=== PATIENT | male | born 1990 | race African-American/Black ===

== ENCOUNTER 2018-05-24 09:50 | Emergency (ER) | END 2018-05-24 15:15 | disposition home or self-care (01) ==

== ENCOUNTER 2018-06-18 19:51 | Emergency (ER) | END 2018-06-19 00:16 | disposition home or self-care (01) ==

== ENCOUNTER 2019-03-26 21:15 | Emergency (ER) | payer MEDICAID, OTHER ==
[~2019-03-26] VITALS: Ht 180.3 cm; Wt 68.2 kg
[~2019-03-26 21:15] MED LIST: HYDR-3980 PO; METO10TA92 PO; NPH,100I5 SQ; ONDA4TAB14 PO; POLY17PO6 PO
[2019-03-26 21:18] VITALS: Ht 180.3 cm; Wt 68.2 kg
[2019-03-26] MEDS ORDERED: SOD CHLORIDE 0.9% 1,000 ML IV STA (21:23)
[2019-03-26] MEDS ORDERED: ONDANSETRON 4 MG INJ IV STA (21:23)
[2019-03-26] MEDS ORDERED: CAPSAICIN 0.025% 60 GM CR TOP STA (21:43)
[2019-03-26] MEDS ORDERED: HALOPERIDOL 5 MG INJ IV ONE (22:00)
--- NOTE | 2019-03-26 23:43 | ERD ---
ER Documentation Chief Complaint Chief Complaint C/O WEAKNESS AND VOMITING X3 DAYS, NOT ACTING NORMAL PER FRIEND, DIABETIC HPI 28-year-old male with a history of insulin-dependent diabetes, poorly compliant who presents the emergency with nausea vomiting and weakness for 3 days. The patient has been generally weak and not acting normal per his friend and told to come to the emergency room. The patient uses marijuana on a daily basis. He has had episodes in the past of uncontrolled nausea and vomiting. He denies any fevers or chills chest pain or shortness of breath. No significant abdominal pain. ROS All systems reviewed and are negative except as per history of present illness. Medications Home Meds Active Scripts Metoclopramide* (Reglan*) 10 Mg Tablet, 10 MG PO Q6 PRN for NAUSEA AND/OR VOMITING, #20 TAB Prov:HANNY HANSON MD 03/26/19 Polyethylene Glycol* (Miralax*) 17 Gm Powd.pack, 17 GM PO DAILY, #7 Prov:ANANT LONDONO DO 05/24/18 Hydrocodone/Acetaminophen ([place] 10-325 Tablet) 1 Each Tablet, 1 TAB PO Q6H PRN for PAIN, #15 TAB Prov:ANANT LONDONO DO 05/24/18 Ondansetron (Ondansetron Odt) 4 Mg Tab.rapdis, 4 MG PO Q6H PRN for NAUSEA AND/OR VOMITING, #10 TAB Prov:ANANT LONDONO DO 05/24/18 NPH, Human Insulin Isophane (Humulin N Kwikpen) 100 Unit/1 Ml Insuln.pen, 15 UNIT SQ BID, #14 EA Prov:ANANT LONDONO DO 05/24/18 Allergies Allergies: Coded Allergies: No Known Allergy (Unverified , 05/24/18) PMhx/Soc History of Surgery: No Anesthesia Reaction: No Hx Neurological Disorder: No Hx Respiratory Disorders: No Hx Cardiac Disorders: No Hx Psychiatric Problems: No Hx Miscellaneous Medical Probl: Yes (Anemia, DM1) Hx Alcohol Use: Yes (Sometimes) Hx Substance Use: Yes (Marijuana) Hx Tobacco Use: Yes Smoking Status: Current some day smoker FmHx Family History: diabetes Physical Exam Vitals Vital Signs Date Temp Pulse Resp B/P (MAP) Pulse Ox O2 O2 Flow FiO2 Time Delivery Rate 03/26/19 99.7 99 19 112/77 98 21:18 (89) Physical Exam General: Thin, cachectic, dry heaving Head: Normocephalic, atraumatic. Eyes: Pupils equally reactive, EOM intact ENT: Dry mucous membranes Neck: Supple, no lymphadenopathy Respiratory: Lungs clear bilaterally, no distress Cardiovascular: RRR, no murmurs, rubs, or gallops Abdominal: Soft, non-tender, non-distended, no peritoneal signs, no tenderness McBurney's point : Deferred MSK: No edema, no unilateral swelling, 5/5 strength Neurologic: Alert and oriented, moving all extremities, normal speech, no focal weakness, no cerebellar signs Skin: No rash Psych: Normal mood Result Diagram: 03/26/19213103/26/192131 Results 24 hrs Laboratory Tests Test 03/26/19 21:18 03/26/19 21:23 03/26/19 21:32 Bedside Glucose 270 mg/dL Blood Gas Specimen Source Blood venous Arterial Blood Date Drawn 03/26/2019 9:28:16 PM Arterial Blood Gas VENOUS LINE Puncture Site Minor Test N/A Venous Blood pH 7.467 Venous Blood pCO2 38.8 mmHG (Temp Corrected) Venous Blood pO2 30.3 mmHG (Temp Corrected) Venous Blood HCO3 27.4 mmol/L Venous Blood Oxygen 65.8 mmHG Saturation Venous Blood Base Excess 3.6 mmol/L Venous Blood Total 17.0 g/dl Hemoglobin Venous Blood Oxyhemoglobin 64.5 % Venous Blood Methemoglobin 0.2 % Carboxyhemoglobin 1.8 % Blood Gas Temperature 37.0 C Blood Gas Modality ROOM AIR FiO2 21.0 % Blood Gas Notified Whom MR Blood Gas Notified Time 03/26/2019 9:36:46 PM White Blood Count 8.4 10^3/ul Red Blood Count 6.06 10^6/ul Hemoglobin 15.8 g/dl Hematocrit 49.0 % Mean Corpuscular Volume 80.9 fl Mean Corpuscular Hemoglobin 26.1 pg Mean Corpuscular 32.2 g/dl Hemoglobin Concent Red Cell Distribution Width 12.5 % Platelet Count 267 10^3/UL Mean Platelet Volume 10.5 fl Immature Granulocytes % 0.200 % Neutrophils % 74.9 % Lymphocytes % 15.2 % Monocytes % 9.2 % Eosinophils % 0.1 % Basophils % 0.4 % Nucleated Red Blood Cells % 0.0 /100WBC Immature Granulocytes # 0.020 10^3/ul Neutrophils # 6.3 10^3/ul Lymphocytes # 1.3 10^3/ul Monocytes # 0.8 10^3/ul Eosinophils # 0.0 10^3/ul Basophils # 0.0 10^3/ul Nucleated Red Blood Cells # 0.0 10^3/ul Sodium Level 139 mmol/L Potassium Level 4.5 mmol/L Chloride Level 95 mmol/L Carbon Dioxide Level 29 mmol/L Anion Gap 15 Blood Urea Nitrogen 18 mg/dl Creatinine 0.88 mg/dl Est Glomerular Filtrat > 60 mL/min Rate mL/min Glucose Level 260 mg/dl Calcium Level 10.2 mg/dl Phosphorus Level 4.2 mg/dl Magnesium Level 2.2 mg/dl Current Medications Medications Dose Sig/Babita Start Time Status Last (Trade) Ordered Route PRN Stop Time Admin Dose Reason Admin Ondansetron 4 mg ONCE STAT 03/26/19 DC 03/26/19 HCl (Zofran IV 21:23 21:35 Inj) 03/26/19 21:24 Sodium 1,000 ml @ Q1H STAT 03/26/19 DC 03/26/19 Chloride 1,000 mls/hr IV 21:23 21:35 03/26/19 22:22 Haloperidol 2 mg ONCE ONCE 03/26/19 DC 03/26/19 (Haldol) IV 22:00 22:00 03/26/19 22:01 Capsaicin 1 applic ONCE STAT 03/26/19 DC 03/26/19 (Theragen) [facility] 21:43 22:23 03/26/19 21:44 Procedures/MDM LAB INTERPRETATION: I reviewed the laboratory testing and it shows no evidence of acute process MEDICAL DECISION MAKING: The patient has clinical signs and symptoms likely consistent with cyclic vomiting syndrome secondary to daily marijuana use. Patient's abdominal exam is benign without concern for acute intra-abdominal process such as bowel obstruction or appendicitis. The patient needs DKA screening but lower clinical concern for that process. ER COURSE: * Laboratory testing shows no evidence of diabetic ketoacidosis * Patient was treated with IV fluids, nausea medication, Haldol and capsaicin. * Patient had dramatic and near complete resolution of symptoms. The patient can safely be discharged home with close primary care follow-up. * Marijuana cessation and management discussed with the patient. CONSULTATION: None DISPOSITION PLAN: The patient does not have an identifiable emergent medical condition that warrants inpatient hospitalization at this time. The patient is deemed safe for discharge with outpatient follow-up. We discussed follow up with the patient's primary care doctor within 24 to 48 hours as needed. We also discussed return to the emergency room for worsening symptoms or worsening condition. Outpatient referral: None required Discharge Medications: Zofran Departure Diagnosis: Primary Impression: Cyclic vomiting syndrome Vomiting Intractability: non-intractable Nausea presence: with nausea Qualified Codes: G43.A0 - Cyclical vomiting, not intractable Condition: Stable Patient Instructions: Vomiting (4Y-Adult) Referrals: COMM[facility]ITY CLIN[facility] YOU HAVE RECEIVED A MEDICAL SCREENING EXAM AND THE RESULTS INDICATE THAT YOU DO NOT HAVE A CONDITION THAT REQUIRES URGENT TREATMENT IN THE EMERGENCY DEPARTMENT. FURTHER EVALUATION AND TREATMENT OF YOUR CONDITION CAN WAIT UNTIL YOU ARE SEEN IN YOUR DOCTORS OFFICE WITHIN THE NEXT 1-2 DAYS. IT IS YOUR RESPONSIBILITY TO MAKE AN APPOINTMENT FOR FOLOW-UP CARE. IF YOU HAVE A PRIMARY DOCTOR --you should call your primary doctor and schedule an appointment IF YOU DO NOT HAVE A PRIMARY DOCTOR YOU CAN CALL OUR PHYSICIAN REFERRAL HOTLINE AT IF YOU CAN NOT AFFORD TO SEE A PHYSICIAN YOU CAN CHOSE FROM THE FOLLOWING [facility] [address] [facility]. [facility] [address] [facility] [place] [address] [facility] [address] [facility] [facility] [address] [facility]. [facility]. [address] [facility] [facility] YOU HAVE RECEIVED A MEDICAL SCREENING EXAM AND THE RESULTS INDICATE THAT YOU DO NOT HAVE A CONDITION THAT REQUIRES URGENT TREATMENT IN THE EMERGENCY DEPARTMENT. FURTHER EVALUATION AND TREATMENT OF YOUR CONDITION CAN WAIT UNTIL YOU ARE SEEN IN YOUR DOCTORS OFFICE WITHIN THE NEXT 1-2 DAYS. IT IS YOUR RESPONSIBILITY TO MAKE AN APPOINTMENT FOR FOLOW-UP CARE. IF YOU HAVE A PRIMARY DOCTOR --you should call your primary doctor and schedule and appointment IF YOU DO NOT HAVE A PRIMARY DOCTOR YOU CAN CALL OUR PHYSICIAN REFERRAL HOTLINE AT . IF YOU CAN NOT AFFORD TO SEE A PHYSICIAN YOU CAN CHOSE FROM THE FOLLOWING [facility]: [facility] [address] [place] [address] [facility] [address] [place] [address] [facility] [address] [place] [address] Additional Instructions: Call your primary care doctor TOMORROW for an appointment during the next 1 WEEK.Tell the locomotive oiler that you were referred from this facility.See the doctor sooner or return here if your condition worsens before your appointment time. HANNY HANSON MD Mar 26, 2019 23:43
[2019-03-26 23:59] VITALS: BP 118/78; PULSE 88; RESP 16
== END 2019-03-26 23:59 | disposition home or self-care (01) ==
LOC: E/R 21:15
DX: G43.A0 Cyclical vomiting, in migraine, not intractable (principal); E10.9 Type 1 diabetes mellitus without complications; F17.210 Nicotine dependence, cigarettes, uncomplicated
CPT/HCPCS: 36415; 80048; 82803; 82962; 83735; 84100; 85025; 96374; 96375; J1630; J2405; J7030; Z7502; Z7610